=== PATIENT | female | born 1950 | race Caucasian/White ===

== ENCOUNTER → 2016-08-27 | Outpatient (CLI) | payer OTHER ==
[~2016-08-27] MED LIST: CITRACAL + D M1 EACH PO; DOXYCYCLINE HY100 M4 PO; PANTOPRAZOLE SO40 MG PO; VALACYCLOVIR1000 MG PO; VITAMIN D31000 UNIT PO; WAL-ZYR10 M1 PO
--- NOTE | ~2016-08-27 | MY29 ---
[facility] RADIOLOGY TEXT RESULTS PATIENT: BENITO FORTE LOCATION: [facility] : 52 UNIT #: [id number] AGE: [address]: Laine Galindo MD SEX: F ORDER DR: [id number] [facility] [address] [place], [place] [address] [id number] O MR#: [id number] Acc #: [id number] NAME: BENITO FORTE : 1950 SEX: F STUDY DATE/TIME: 08/27/2016 10:22 UNIT: [facility] ROOM: STUDY DESCRIPTION: MY FOREIGN SCREENING W/ CAD BILAT Attending Physician: Laine Galindo M.D. Referring Physician: Laine Galindo M.D. Ordering Physician: Laine Galindo M.D. Primary Care Physician: Laine Galindo M.D. MEDICAL IMAGING REPORT This report is preliminary unless electronic signature is present EXAM Digital screening mammogram 08/27/2016 HISTORY 66-year-old woman no risk elevation. Annual screen. COMPARISON Mammograms date to 06/20/2006 with most recent 08/25/2015, diagnostic right mammogram 09/17/2015. FINDINGS Digital imaging of each breast was completed utilizing screening protocol. Review includes FDA-approved CAD device. Breast parenchyma is partially fatty replaced. Subareolar duct ectasia is present in each breast. There is no interval occurring mass. There are no suspicious microcalcifications and no architectural deformity. IMPRESSION Benign mammogram. Annual screening recommended. Patients over the age of 40 are entered into a reminder system with target due date for the next mammogram. A result letter will also be sent to the patient. BIRADS: 2 Benign finding Dictated by... John Blackwell M.D. THIS IS AN ELECTRONICALLY VERIFIED REPORT John Blackwell M.D. at 08/27/2016 3:03 PM [facility] Service [facility] RADIOLOGY TEXT RESULTS PATIENT: BENITO FORTE [id number] [birth year] UNIT #: [id number] AGE: [address]: Laine Galindo MD SEX: F ORDER DR: TD: 08/27/2016 13:53 JOB #: [id number] MEDICAL IMAGING REPORT Page 1 of 1 COPY
== END | disposition home or self-care (01) ==
LOC: CWCC 09:57
DX: Z12.31 Encounter for screening mammogram for malignant neoplasm of breast (principal)
CPT/HCPCS: G0202

== ENCOUNTER → 2016-09-10 | Day surgery (SDC) | payer OTHER ==
--- NOTE | ~2016-09-10 | OR ---
Unit #: [id number] #: [id number] Patient: BENITO FORTE [id number] [address] [address] [id number] O MR#: [id number] NAME: BENITO FORTE. ROOM: Date of Procedure: 09/10/2016 Admission Date: 09/10/2016 Surgeon: Tej Cobos M.D. : 1950 Attending Physician: Tej Cobos M.D. Primary Care Physician: Laine Galindo M.D. OPERATIVE REPORT PROCEDURE PERFORMED Esophagogastroduodenoscopy with biopsy. INDICATIONS FOR PROCEDURE The patient with history of Sánchez esophagus, persistent GERD symptoms, also with history of Unique esophagitis, undergoing EGD for evaluation. MEDICATIONS Monitored anesthesia. POSTOPERATIVE FINDINGS 1. Small segment Sánchez esophagus along with hiatal hernia. Biopsies taken. 2. No esophagitis. 3. Chronic appearing gastritis, biopsies taken. 4. Normal duodenum and distal duodenum. PLAN Continue with PPI therapy and reflux precautions. Repeat upper endoscopy in 3 years. DESCRIPTION OF PROCEDURE The patient was explained of the procedure, risks, and benefits along with the risks and benefits of anesthesia. She was brought to the endoscopy room. Propofol anesthesia was given. Bite block was placed. The scope was passed down the mouth into the esophagus, stomach, duodenum, and distal duodenum. Findings as described. Biopsies taken. Gently, I pulled the scope out of the patient's mouth. She tolerated it well. No major complications were seen. Dictated by... Wilberto Kaur/kam TD: 09/10/2016 14:54 JOB #: [id number] Unit #: [id number] #: [id number] Patient: BENITO FORTE OPERATIVE REPORT Page 1 of 1 X Tej Cobos MD X PROCEDURE OPERATIVE NOTE
== END | disposition home or self-care (01) ==
LOC: COPS 08-17 10:30
DX: K29.50 Unspecified chronic gastritis without bleeding (principal); K22.70 Barrett's esophagus without dysplasia; K21.0 Gastro-esophageal reflux disease with esophagitis; K44.9 Diaphragmatic hernia without obstruction or gangrene; Z87.440 Personal history of urinary (tract) infections; Z90.49 Acquired absence of other specified parts of digestive tract; Z98.41 Cataract extraction status, right eye; Z98.42 Cataract extraction status, left eye; Z79.899 Other long term (current) drug therapy
CPT/HCPCS: 88305; 88312; J2250